=== PATIENT | male | born 1975 | race Two or more races ===

== ENCOUNTER 2016-08-03 20:21 | Emergency (ER) | payer MEDICAID ==
[~2016-08-03] VITALS: Ht 167.6 cm; Wt 79.4 kg
[2016-08-03] MEDS ORDERED: NKM (20:28)
[2016-08-03] MEDS ORDERED: NORCO 5-325 TA1 EACH ORAL (21:19)
[2016-08-03] MEDS ORDERED: IBUPROFEN600 MG ORAL (21:19)
[2016-08-03 21:35] VITALS: BP 149/80
--- NOTE | 2016-08-04 09:08 | Diagnostic Imaging Report ---
Indication: PAIN Technique: 3 views right foot Comparison: none Findings: There is hallux valgus and mild metatarsus adductus. No acute fractures. No dislocations. Joint spaces are preserved Impression: Deformities, as described. No acute bony trauma
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
== END 2016-08-03 21:36 | disposition home or self-care (01) ==
LOC: EDBD 20:21 → EMR 21:25
DX: S90.31XA Contusion of right foot, initial encounter (principal); V03.90XA Pedestrian on foot injured in collision with car, pick-up truck or van, unspecified whether traffic or nontraffic accident, initial encounter; Y92.9 Unspecified place or not applicable; M20.11 Hallux valgus (acquired), right foot
CPT/HCPCS: 29540; 99283